=== PATIENT | female | born 1990 | race Caucasian/White ===

== ENCOUNTER 2022-07-03 14:05 | Observation (INO) | payer MEDICAID ==
[~2022-07-03] VITALS: Ht 154.9 cm; Wt 77.1 kg
== END 2022-07-03 16:19 | disposition home or self-care (01) ==
LOC: 8 EST LDRP 14:05
PROVIDERS: ADMIT Obstetrics & Gynecology; ATTEND Obstetrics & Gynecology
DX: O26.892 Other specified pregnancy related conditions, second trimester (principal); O36.8120 Decreased fetal movements, second trimester, not applicable or unspecified; O62.9 Abnormality of forces of labor, unspecified; Z3A.25 25 weeks gestation of pregnancy
CPT/HCPCS: 59025; 76805; G0378; 99281